=== PATIENT | male | born 1980 | race Hispanic/Latino ===

== ENCOUNTER 2017-12-19 02:59 | Emergency (ER) | payer SELFPAY ==
[2017-12-19] MEDS ORDERED: MEPERIDINE HCL 50 MG/ML AMP ONE (03:14)
[2017-12-19] MEDS ORDERED: DEXAMETHASONE 10 MG/ML VIAL ONE (03:14)
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
--- NOTE | 2017-12-19 04:03 | ER ---
Nurse's Notes [facility] Name: Mario Alberto Spear Age: 37 yrs Sex: Male : 1980 Arrival Date: 12/19/2017 Time: 03:04 Bed 8 Private MD: Diagnosis: Low back pain;Radiculopathy, lumbosacral region;Muscle spasm of back Presentation: 12/19 03:06 Presenting complaint: Patient states: he sustained a back injury 3 years ago to L5 \T\ S1 aa1 and has been having low back pain for the past week. States over the past 3 days the pain has started radiating down his R leg. CMS intact. Transition of care: patient was not received from another setting of care. Onset of symptoms was December 12, 2017. Risk Assessment: Do you want to hurt yourself or someone else? Patient reports no desire to harm self or others. Initial Sepsis Screen: Does the patient meet any 2 criteria? No. Patient's initial sepsis screen is negative. Does the patient have a suspected source of infection? No. Patient's initial sepsis screen is negative. Care prior to arrival: None. 03:06 Method Of Arrival: EMS: [facility] aa1 03:06 Acuity: FAISAL 4 aa1 Triage Assessment: 03:06 General: Appears in no apparent distress. uncomfortable, Behavior is calm, cooperative, aa1 appropriate for age. Historical: - Allergies: 03:14 No Known Allergies; aa1 - Home Meds: 03:14 None [Active]; aa1 - PMHx: 03:14 back injury to L5 \T\ S1; aa1 - PSHx: 03:14 None; aa1 - Immunization history:: Flu vaccine is not up to date. - Social history:: Smoking status: Patient uses tobacco products, smokes one-half pack cigarettes per day. - Family history:: not pertinent. - Ebola Screening: : No symptoms or risks identified at this time. - Hospitalizations: : No recent hospitalization is reported. Screenin:40 Abuse screen: Denies threats or abuse. Nutritional screening: No deficits noted. ea Tuberculosis screening: No symptoms or risk factors identified. Fall Risk None identified. Assessment: 03:10 General: Appears uncomfortable, Behavior is restless. Pain: Complains of pain in low ea back area and right leg Pain currently is 10 out of 10 on a pain scale. Quality of pain is described as aching. Neuro: Level of Consciousness is awake, alert, obeys commands, Oriented to person, place, time. Cardiovascular: Patient's skin is warm and dry. Respiratory: Airway is patent Respiratory effort is even, unlabored, Respiratory pattern is regular, symmetrical. Derm: Skin is pink, warm \T\ dry. Musculoskeletal: Circulation, motion, and sensation intact. Vital Signs: 03:06 BP 176 / 113; Pulse 80; Resp 18; Temp 97.9; Pulse Ox 97% on R/A; Weight 72.57 kg; aa1 Height 5 ft. 3 in. (160.02 cm); Pain 10/10; 03:36 BP 109 / 88; Pulse 70; Resp 18; Pulse Ox 97% ; ea 03:06 Body Mass Index 28.34 (72.57 kg, 160.02 cm) aa1 ED Course: 03:04 Patient arrived in ED. aa1 03:04 Navjot Batista MD is Attending Physician. rn 03:05 Jenny Mercado RN is Primary Nurse. ea 03:06 Arm band placed on right wrist. aa1 03:10 Patient has correct armband on for positive identification. Bed in low position. Call ea light in reach. Side rails up X2. 03:11 Triage completed. aa1 03:41 No provider procedures requiring assistance completed. ea 04:14 Patient did not have IV access during this emergency room visit. ea Administered Medications: 03:13 Drug: Decadron 10 mg Route: IM; Site: right deltoid; ea 03:43 Follow up: Response: No adverse reaction; Pain is decreased ea 03:14 Drug: Demerol 50 mg Route: IM; Site: left deltoid; ea 03:43 Follow up: Response: No adverse reaction; Pain is decreased ea Outcome: 04:02 Discharge ordered by . rn 04:10 Condition: improved ea 04:10 Discharge instructions given to patient, Instructed on discharge instructions, follow up and referral plans. medication usage, Demonstrated understanding of instructions, follow-up care, medications, Prescriptions given X 3. 04:14 Discharged to [facility], awaiting on transport home ea 04:22 Patient left the ED. ea Signatures: Gayle Acosta RN RN aa1 Batista, Navjot, MD MD rn Mercado, Jenny, RN RN ea
== END 2017-12-19 04:22 | disposition home or self-care (01) ==
LOC: ER 02:59
DX: M54.17 Radiculopathy, lumbosacral region (principal); M62.830 Muscle spasm of back; F17.210 Nicotine dependence, cigarettes, uncomplicated
CPT/HCPCS: 96372; 99283; J1100; J2175

== ENCOUNTER 2019-02-27 14:07 | Emergency (ER) | payer SELFPAY ==
[2019-02-27] MEDS ORDERED: CEFTRIAXONE 1000 MG/VIAL ONE (14:56)
[2019-02-27] MEDS ORDERED: LIDOCAINE 1% MPF 2 ML AMPULE ONE (14:56)
[2019-02-27] MEDS ORDERED: TETRACAINE HCL 0.5% 4ML OPTH ONE (14:56)
--- NOTE | 2019-02-27 15:18 | EDPHYS ---
Physician Documentation [facility] Name: Mario Alberto Spear Age: 38 yrs Sex: Male : 1980 Arrival Date: 02/27/2019 Time: 14:07 Bed 4 Private MD: ED Physician Navjot Batista HPI: 02/27 14:47 This 38 yrs old Male presents to ER via Ambulatory with complaints of Ear Pain.jmm 14:47 The patient presents with pain. Onset: The symptoms/episode began/occurred gradually, jmm today. Modifying factors: The symptoms are alleviated by nothing, the symptoms are aggravated by nothing. Associated signs and symptoms: Pertinent positives: Pertinent negatives: fever. This is a 38 year old male with a history of chronic back pain that presents to the ED with complaints of right ear pain beginning today. Patient admits to cough and congestion over the past week. Denies fever. Patient states pain radiates down his right jaw. . Historical: - Allergies: 14:13 No Known Allergies; ss - PMHx: 14:13 back injury to L5 \T\ S1; ss - PSHx: 14:13 None; ss - Immunization history:: Adult Immunizations up to date. - Social history:: Smoking status: Patient uses tobacco products, smokes one-half pack cigarettes per day. - Ebola Screening: : Patient denies exposure to infectious person Patient denies travel to an Ebola-affected area in the 21 days before illness onset. ROS: 14:47 Constitutional: Negative for fever, chills, and weight loss. jmm 14:47 Cardiovascular: Negative for chest pain, palpitations, and edema. 14:47 ENT: Positive for ear pain. 14:47 Respiratory: Positive for cough. 14:47 All other systems are negative. Exam: 14:47 Constitutional: This is a well developed, well nourished patient who is awake, alert, jmm and in no acute distress. Head/Face: atraumatic. Eyes: EOMI, no conjunctival erythema appreciated 14:47 Neck: Trachea midline, Supple Chest/axilla: Normal chest wall appearance and motion. Cardiovascular: Regular rate and rhythm. No edema appreciated Respiratory: Normal respirations, no respiratory distress appreciated Abdomen/GI: Non distended, soft Back: Normal ROM Skin: General appearance color normal MS/ Extremity: Moves all extremities, no obvious deformities appreciated, no edema noted to the lower extremities Neuro: Awake and alert, normal gait Psych: Behavior is normal, Mood is normal, Patient is cooperative and pleasant 14:47 ENT: TM's: bulging, on the right, erythema, that is marked, on the right. Vital Signs: 14:10 BP 172 / 95; Pulse 69; Resp 16; Temp 98.0; Pulse Ox 100% on R/A; Weight 70.76 kg; ss Height 5 ft. 3 in. (160.02 cm); Pain 9/10; 14:10 Body Mass Index 27.63 (70.76 kg, 160.02 cm) ss MDM: 14:47 Patient medically screened. [facility] 15:16 Data reviewed: vital signs, nurses notes. Counseling: I had a detailed discussion with horace the patient and/or guardian regarding: the historical points, exam findings, and any diagnostic results supporting the discharge/admit diagnosis, the need for outpatient follow up, to return to the emergency department if symptoms worsen or persist or if there are any questions or concerns that arise at home. ED course: Patient is alert and non toxic in appearance in the ED. Patient advised to follow up with pcp and otherwise given strict return precautions. Patient understood and agrees with the plan of care. . Administered Medications: 15:00 Drug: Rocephin (cefTRIAXone) 1 grams Route: IM; Site: right ventrogluteal; sg 15:00 Drug: Tetracaine Solution (0.5 %) 2 drops Route: Topical; Site: affected area; sg Disposition: 16:26 Co-signature as Attending Physician, Navjot Batista MD. rn Disposition: 02/27/19 15:17 Discharged to Home. Impression: Acute serous otitis media. - Condition is Stable. - Discharge Instructions: Otitis Media, Adult. - Prescriptions for Amoxicillin 875 mg Oral Tablet - take 1 tablet by ORAL route every 12 hours for 10 days; 20 tablet. - Work release form, Family Work Release, Medication Reconciliation Form, Thank You Letter, Antibiotic Education, Prescription Opioid Use form. - Follow up: Private Physician; When: 2 - 3 days; Reason: Recheck today's complaints, Continuance of care, Re-evaluation by your physician. Signatures: Abram Bass RN RN sg Mickail, Camilo, PA PA jmm Batista, Navjot, MD MD rn Smirch, Eli, RN RN ss Corrections: (The following items were deleted from the chart) 15:25 15:17 02/27/2019 15:17 Discharged to Home. Impression: Acute serous otitis media. sg Condition is Stable. Forms are Medication Reconciliation Form, Thank You Letter, Antibiotic Education, Prescription Opioid Use. Follow up: Private Physician; When: 2 - 3 days; Reason: Recheck today's complaints, Continuance of care, Re-evaluation by your physician. jonatan
--- NOTE | 2019-02-27 15:18 | ER ---
Nurse's Notes [facility] Name: Mario Alberto Spear Age: 38 yrs Sex: Male : 1980 Arrival Date: 02/27/2019 Time: 14:07 Bed 4 Private MD: Diagnosis: Acute serous otitis media Presentation: 02/27 14:11 Presenting complaint: Patient states: R ear pain that began suddenly today. Transition ss of care: patient was not received from another setting of care. Onset of symptoms was February 27, 2019. Risk Assessment: Do you want to hurt yourself or someone else? Patient reports no desire to harm self or others. Initial Sepsis Screen: Does the patient meet any 2 criteria? No. Patient's initial sepsis screen is negative. Does the patient have a suspected source of infection? No. Patient's initial sepsis screen is negative. Care prior to arrival: None. 14:11 Method Of Arrival: Ambulatory ss 14:11 Acuity: FAISAL 4 ss Historical: - Allergies: 14:13 No Known Allergies; ss - PMHx: 14:13 back injury to L5 \T\ S1; ss - PSHx: 14:13 None; ss - Immunization history:: Adult Immunizations up to date. - Social history:: Smoking status: Patient uses tobacco products, smokes one-half pack cigarettes per day. - Ebola Screening: : Patient denies exposure to infectious person Patient denies travel to an Ebola-affected area in the 21 days before illness onset. Assessment: 14:20 General: Appears in no apparent distress. well groomed, well developed, well nourished, sg Behavior is calm, cooperative, appropriate for age. Pain: Complains of pain in right ear Quality of pain is described as aching, sharp, stabbing. Neuro: Level of Consciousness is awake, alert, obeys commands, Oriented to person, place, time, Speech is normal, Facial symmetry appears normal. Cardiovascular: Capillary refill is brisk in bilateral fingers Patient's skin is warm and dry. Chest pain is denied. Respiratory: Airway is patent Respiratory effort is even, unlabored, Respiratory pattern is regular, symmetrical. GI: Abdomen is round non-distended. : No signs and/or symptoms were reported regarding the genitourinary system. EENT: Reports pain in right ear. Derm: No signs and/or symptoms reported regarding the dermatologic system. Musculoskeletal: Circulation, motion, and sensation intact. Range of motion: intact in all extremities. Vital Signs: 14:10 BP 172 / 95; Pulse 69; Resp 16; Temp 98.0; Pulse Ox 100% on R/A; Weight 70.76 kg; ss Height 5 ft. 3 in. (160.02 cm); Pain 9/10; 14:10 Body Mass Index 27.63 (70.76 kg, 160.02 cm) ED Course: 14:07 Patient arrived in ED. as 14:10 Arm band placed on right wrist. 14:13 Triage completed. 14:20 Patient has correct armband on for positive identification. Bed in low position. Call sg light in reach. Side rails up X2. Pulse ox on. NIBP on. 14:29 Camilo Hills PA is PHCP. [facility] 14:29 Navjot Batista MD is Attending Physician. [facility] 15:04 Abram Bass, RN is Primary Nurse. sg 15:25 No provider procedures requiring assistance completed. Patient did not have IV access sg during this emergency room visit. Administered Medications: 15:00 Drug: Rocephin (cefTRIAXone) 1 grams Route: IM; Site: right ventrogluteal; sg 15:00 Drug: Tetracaine Solution (0.5 %) 2 drops Route: Topical; Site: affected area; sg Outcome: 15:17 Discharge ordered by MD. [facility] 15:20 Discharged to home ambulatory, with family. sg 15:20 Condition: good 15:20 Discharge instructions given to patient, Instructed on discharge instructions, follow up and referral plans. no drinking with medication, medication usage, safety practices, Demonstrated understanding of instructions, follow-up care, medications, Prescriptions given X 1. 15:25 Patient left the ED. sg Signatures: Abram Bass, RN RN Camilo Hills PA PA jmm Martinez, Amelia as Smirch, Shelby, RN RN
[2019-02-27 16:43] VITALS: BP 172/95; TEMP 98; O2SAT 100
== END 2019-02-27 15:25 | disposition home or self-care (01) ==
LOC: ER 14:07
DX: H65.01 Acute serous otitis media, right ear (principal); F17.210 Nicotine dependence, cigarettes, uncomplicated
CPT/HCPCS: 96372; 99283; J2001

== ENCOUNTER 2019-12-25 16:05 | Emergency (ER) | payer SELFPAY ==
[2019-12-25] MEDS ORDERED: ONDANSETRON 4 MG/2 ML VIAL ONE (16:26)
[2019-12-25] MEDS ORDERED: MORPHINE 4 MG/ML SYR ONE (16:26)
[2019-12-25] MEDS ORDERED: NA CHLORIDE 0.9% 1,000 ML ONE (16:26)
[2019-12-25] MEDS ORDERED: TETANUS & DIPHTHERIA TOX,ADULT 0.5 ML VIAL ONE (16:26)
[2019-12-25] MEDS ORDERED: LIDOCAINE VISCOUS 2% SOLN 15 ML UDC ONE (16:28)
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
[2019-12-25] MEDS ORDERED: HYDROMORPHONE HCL 0.5 MG/0.5 ML INJ ONE ×2 (16:54→18:24)
[2019-12-25] MEDS ORDERED: CEFAZOLIN/SWI 1gm 1 GM/10 ML SYR ONE (16:54)
[2019-12-25 18:44] VITALS: TEMP 98.6
[2019-12-25 18:54] VITALS: BP 151/72; O2SAT 98
== END 2019-12-25 18:18 | disposition short-term general hospital (02) ==
LOC: ER 16:05
DX: T22.211A Burn of second degree of right forearm, initial encounter (principal); T23.201A Burn of second degree of right hand, unspecified site, initial encounter; T23.271A Burn of second degree of right wrist, initial encounter; T31.0 Burns involving less than 10% of body surface; X03.0XXA Exposure to flames in controlled fire, not in building or structure, initial encounter; Y93.89 Activity, other specified; Y92.9 Unspecified place or not applicable; Z23 Encounter for immunization; F17.210 Nicotine dependence, cigarettes, uncomplicated
CPT/HCPCS: 90471; 90714; 96365; 96375; 99285; J0690; J1170; J2405; J7030

== ENCOUNTER 2020-07-25 21:51 | Emergency (ER) | payer SELFPAY ==
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
[2020-07-26] MEDS ORDERED: dexAMETHasone 10 MG/ML VIAL ONE (02:07)
[2020-07-26 02:18] VITALS: BP 164/87; TEMP 97.5; O2SAT 99
== END 2020-07-26 02:07 | disposition home or self-care (01) ==
LOC: ER 21:51
DX: L23.7 Allergic contact dermatitis due to plants, except food (principal); F17.210 Nicotine dependence, cigarettes, uncomplicated
CPT/HCPCS: 99281; J1100

== ENCOUNTER 2021-02-19 15:38 | Emergency (ER) | payer SELFPAY ==
--- OUTSIDE RECORDS SUMMARY | 2021-02-19 15:40 | XMS REPORT | Continuity of Care Document ---
:1980 Author Organization [facility] t Address [facility] [place] [address] Care Team Providers Name Role Phone CARA STEPHENS Attending Clinician Unavailable Letitia BLANCO Attending Clinician Unavailable CORI LITTLE Attending Clinician Unavailable Cecilia LOGAN Admitting Clinician Unavailable Problems This patient has no known problems. Allergies, Adverse Reactions, Alerts Allergy Allergy Status Severity Reaction(s) Onset Inactive Treating Comm ents Source Name Type Date Date Clinician NO KNOWN Drug Active [facility] Medications This patient has no known medications. Procedures This patient has no known procedures. Encounters Start End Encounter Admission Attending Care Care Encounter Source Date/Time Date/Time Type Type Clinicians Facility Department ID 2020-01-06 2020-01-06 Outpatient O CARA STEPHENS [facility] [id number] [facility]:30[facility] 2020-01-06 Outpatient R [facility] [id number] [facility] 12:30:00 12:30:00 [id number] [facility] 2020-01-05 2020-01-05 Outpatient R [facility] [id number] [facility] 12:30:00 12:30:00 [id number] [facility] 2020-01-05 2020-01-05 Outpatient R CARA STEPHENS [facility] [id number] [facility] 12:30[facility]00 [facility]-12-29 2019-12-29 Outpatient R [facility] [id number] Univers 15:00:00 15:00:00 [id number] [facility] 2019-12-29 2019-12-29 Outpatient R BELLA [facility] [id number] [facility] 15:00:00 15:00:00 [facility] 2019-12-29 2019-12-29 Outpatient Dania LITTLE [facility] [id number] [facility] 12:30:00 12:30:[address] [facility] 2019-12-25 2019-12-25 [facility] [id number] [facility] 00:00:00 23:59:[address] [facility] Results This patient has no known results.
[2021-02-19 16:26] LABS: Arterial Blood Carboxyhemoglob 3.5 % (0-1.5); Blood Gas Oxyhemoglobin 92.2 % (94-97); Blood O2 Saturation 96.6 % (92-98.5)
[2021-02-19] MEDS ORDERED: TETRACAINE HCL 0.5% 4ML OPTH ONE (16:35)
[2021-02-19] MEDS ORDERED: FLUORESCEIN SODIUM 1 MG/WRAP ONE (16:35)
[2021-02-19] MEDS ORDERED: ALBUTEROL 2.5 MG/3 ML NEB SOL ONE (16:40)
[2021-02-19 16:50] LABS: Absolute Lymphocytes (CBC) 3.3 K/uL (0.7-4.9); Basophils % 0.8 % (0-1.3); Hematocrit 38.9 % (39.6-49.0); Lymphocytes % 36.5 % (15.3-44.8); MPV 7.3 fL (7.6-11.3); RBC Red Blood Cell Count 4.18 M/uL (4.33-5.43)
[2021-02-19 16:51] LABS: Protime INR 1.12
[2021-02-19 17:09] LABS: ALT/SGPT 79 U/L (12-78); AST/SGOT 31 U/L (15-37); Albumin 4.3 g/dL (3.4-5.0); Alkaline Phosphatase 98 U/L (45-117); BUN Blood Urea Nitrogen 8 mg/dL (7-18); Bicarbonate 25 mmol/L (21-32); Bilirubin Direct 0.1 mg/dL (0-0.2); Bilirubin Total 0.5 mg/dL (0.2-1.0); Glucose Level 107 mg/dL (74-106); Magnesium 2.2 mg/dL (1.8-2.4); NT PRO-BNP 16 pg/mL (<125); Potassium 3.4 mmol/L (3.5-5.1); Protein, Total 8.1 g/dL (6.4-8.2); Sodium Level 139 mmol/L (136-145); Troponin (Emerg Dept Use Only) < 0.02 ng/mL (0.0-0.045)
[2021-02-19] MEDS ORDERED: NA CHLORIDE 0.9% 1,000 ML ONE (17:40)
[2021-02-19] MEDS ORDERED: POTASSIUM 25 MEQ EFFERV TAB ONE (18:15)
--- NOTE | 2021-02-19 18:20 | ER ---
Nurse's Notes [facility] Name: Mario Alberto Spear Age: 40 yrs Sex: Male : 1980 Arrival Date: 02/19/2021 Time: 15:39 Bed 8 Private MD: Diagnosis: Toxic effect of carbon monoxide from other source, accidental (unintentional), initial encounter;Visual discomfort, bilateral Presentation: 02/19 15:47 Chief complaint: Patient states: has been BBQ since 0130 and around 0900 states vision vg1 became blurred and is have difficulty breathing. States used a different wood this time. Denies chest pain or headache. States light sensitivity. Coronavirus screen: Vaccine status: Patient reports being unvaccinated. Client denies travel out of the [place] in the last 14 days. Ebola Screen: Patient negative for fever greater than or equal to 101.5 degrees Fahrenheit, and additional compatible Ebola Virus Disease symptoms. Initial Sepsis Screen: Does the patient meet any 2 criteria? No. Patient's initial sepsis screen is negative. Does the patient have a suspected source of infection? No. Patient's initial sepsis screen is negative. Risk Assessment: Do you want to hurt yourself or someone else? Patient reports no desire to harm self or others. Onset of symptoms was February 19, 2021. 15:47 Method Of Arrival: Ambulatory [facility] 15:47 Acuity: FAISAL 3 vg1 Triage Assessment: 15:49 General: Appears in no apparent distress. uncomfortable, Behavior is cooperative, vg1 anxious. Pain: Complains of pain in right eye and left eye Pain currently is 8 out of 10 on a pain scale. Respiratory: Reports difficulty breathing Onset: The symptoms/episode began/occurred today, the patient has mild shortness of breath. Historical: - Allergies: 15:49 No Known Allergies; vg1 - Home Meds: 15:49 None [Active]; vg1 - PMHx: 15:49 back injury to L5 \T\ S1; vg1 - PSHx: 15:49 None; vg1 - Immunization history:: Client reports having NOT received the Covid vaccine. - Social history:: Smoking status: Patient reports the use of cigarette tobacco products, smokes one-half pack cigarettes per day. Screenin:01 Abuse screen: Denies threats or abuse. Nutritional screening: No deficits noted. al4 Tuberculosis screening: No symptoms or risk factors identified. Fall Risk No fall in past 12 months (0 pts). IV access (20 points). Ambulatory Aid- None/Bed Rest/Nurse Assist (0 pts). Gait- Normal/Bed Rest/Wheelchair (0 pts) Mental Status- Oriented to own ability (0 pts). Total Luciano Fall Scale indicates No Risk (0-24 pts). Assessment: 15:49 General: Appears in no apparent distress. uncomfortable, Behavior is calm, cooperative, al4 appropriate for age. Neuro: Level of Consciousness is awake, alert, obeys commands, Oriented to person, place, time, situation. Cardiovascular: Heart tones S1 S2 present Capillary refill < 3 seconds Patient's skin is warm and dry. Respiratory: Airway is patent Respiratory effort is even, unlabored, Respiratory pattern is regular, symmetrical, Breath sounds are clear bilaterally. GI: No signs and/or symptoms were reported involving the gastrointestinal system. : No signs and/or symptoms were reported regarding the genitourinary system. EENT: Eyes are swollen. Reports blurred vision in left eye and right eye. Derm: Skin is intact, Skin is dry, Skin is normal. Musculoskeletal: No signs and/or symptoms reported regarding the musculoskeletal system. 16:45 Reassessment: No changes from previously documented assessment. Patient and/or family al4 updated on plan of care and expected duration. Pain level reassessed. Patient is alert, oriented x 3, equal unlabored respirations, skin warm/dry/pink. 17:36 Reassessment: No changes from previously documented assessment. Patient and/or family al4 updated on plan of care and expected duration. Pain level reassessed. Patient is alert, oriented x 3, equal unlabored respirations, skin warm/dry/pink. 18:30 Reassessment: waiting for NS bolus completion before discharge. al4 18:30 Reassessment: No changes from previously documented assessment. Patient and/or family al4 updated on plan of care and expected duration. Pain level reassessed. Patient is alert, oriented x 3, equal unlabored respirations, skin warm/dry/pink. Vital Signs: 15:45 BP 142 / 88; Pulse 70; Resp 18; Pulse Ox 100% ; al4 15:47 BP 144 / 87; Pulse 67; Resp 18; Temp 98.4; Pulse Ox 100% ; Weight 72.57 kg; Height 5 vg1 ft. 3 in. (160.02 cm); Pain 8/10; 16:55 BP 150 / 77; Pulse 61; Resp 18; Pulse Ox 100% ; al4 17:30 BP 155 / 89; Pulse 69; Resp 18; Pulse Ox 99% ; al4 18:48 BP 137 / 99; Pulse 63; Resp 18 S; Pulse Ox 99% on R/A; al4 15:47 Body Mass Index 28.34 (72.57 kg, 160.02 cm) vg1 Visual Acuity: 17:34 Left Eye Visual acuity 20/20, Pupil size 3 mm, Normal, React To Light, Reactive To al4 Accomodation; Right Eye Visual acuity 20/20, Pupil size 3 mm, Normal, React To Light, Reactive To Accomodation; Both Eyes Visual acuity 20/20; Without Lenses; ED Course: 15:39 Patient arrived in ED. am2 15:42 Williams Agosto is Primary Nurse. al4 15:46 Bryn Steinberg PA is PHCP. cp 15:46 Franco Yepez MD is Attending Physician. cp 15:49 Triage completed. vg1 15:49 Arm band placed on. vg1 17:02 Patient has correct armband on for positive identification. Bed in low position. Call al4 light in reach. Side rails up X 1. Pulse ox on. NIBP on. Door closed. Noise minimized. Lights dimmed. 17:07 Initial lab(s) drawn, by dc, sent to lab. Inserted saline lock: 20 gauge in left kv1 antecubital area, using aseptic technique. Blood collected. 18:45 XRAY Chest (1 view) In Process Unspecified. EDMS 19:09 Assist provider with eye exam of both eyes. using fluorescein stain, Performed by Bryn al4 Maryan HAZEL Patient tolerated well. intact, bleeding controlled, No redness/swelling at site. Pressure dressing applied. Administered Medications: 16:49 Drug: Tetracaine Drops 0.5 % 1 drops Route: Ophthalmic; Site: both eyes; al4 17:46 Follow up: Response: No adverse reaction al4 16:49 Drug: Albuterol 2.5 mg Route: Inhalation; al4 17:45 Follow up: Response: No adverse reaction al4 17:44 Drug: NS 0.9% 1000 ml Route: IV; Rate: 1 bolus; Site: left antecubital; al4 19:11 Follow up: Response: No adverse reaction; IV Status: Completed infusion al4 18:19 Drug: Potassium Effervescent Tablet 50 mEq Route: PO; al4 19:11 Follow up: Response: No adverse reaction al4 Outcome: 18:20 Discharge ordered by . chester 19:09 Discharged to home ambulatory. al4 19:09 Condition: stable 19:09 Discharge instructions given to patient, family, Instructed on discharge instructions, follow up and referral plans. Demonstrated understanding of instructions, follow-up care. 19:12 Patient left the ED. al4 Signatures: Dispatcher [employer] EDMS Bryn Steinberg PA PA cp Moreno, Amanda am2 Garcia, Victoria, RN RN vg1 Williams Agosto al4 Octavio Kelley
--- NOTE | 2021-02-19 18:21 | EDPHYS ---
Physician Documentation [facility] Name: Mario Alberto Spear Age: 40 yrs Sex: Male : 1980 Arrival Date: 02/19/2021 Time: 15:39 Bed 8 Private MD: ED Physician Franco Yepez HPI: 02/19 16:45 This 40 yrs old Male presents to ER via Ambulatory with complaints of cp Breathing Difficulty, Blurred Vision. 16:45 The patient has shortness of breath at rest. cp Historical: - Allergies: 15:49 No Known Allergies; vg1 - Home Meds: 15:49 None [Active]; vg1 - PMHx: 15:49 back injury to L5 \T\ S1; vg1 - PSHx: 15:49 None; vg1 - Immunization history:: Client reports having NOT received the Covid vaccine. - Social history:: Smoking status: Patient reports the use of cigarette tobacco products, smokes one-half pack cigarettes per day. ROS: 16:50 Constitutional: Negative for body aches, chills, fever, poor PO intake. cp 16:50 Eyes: Positive for blurry vision, Negative for pain, redness, vision loss. cp 16:50 ENT: Negative for drainage from ear(s), ear pain, sore throat, difficulty swallowing, difficulty handling secretions. 16:50 Cardiovascular: Negative for chest pain, edema, palpitations. 16:50 Respiratory: Positive for shortness of breath. 16:50 Abdomen/GI: Negative for abdominal pain, nausea, vomiting, and diarrhea. 16:50 : Negative for urinary symptoms. 16:50 Skin: Negative for rash. 16:50 Neuro: Positive for dizziness, Negative for altered mental status, headache, syncope, weakness. 16:50 All other systems are negative. Exam: 16:45 ECG was reviewed by the Attending Physician. cp 16:53 Constitutional: The patient appears in no acute distress, alert, awake, cp non-diaphoretic, non-toxic, well developed, well nourished, uncomfortable. 16:53 Head/Face: Normocephalic, atraumatic. cp 16:53 Eyes: Periorbital structures: appear normal, Pupils: equal, round, and reactive to light and accomodation, Extraocular movements: intact throughout, Conjunctiva: normal, no exudate, no injection, Corneas: abrasion, is not appreciated, foreign body, is not appreciated, a fluorescein strip employed to appreciate the findings, Sclera: no appreciated abnormality, Lids and lashes: appear normal, bilaterally, Visual call: are intact. 16:53 ENT: External ear(s): are unremarkable, Ear canal(s): are normal, clear, TM's: dullness, bilaterally, Nose: is normal, Mouth: Lips: moist, Oral mucosa: pink and intact, moist, Posterior pharynx: Airway: no evidence of obstruction, patent. 16:53 Neck: ROM/movement: is normal, is supple, without pain, no range of motions limitations. 16:53 Chest/axilla: Inspection: normal, Palpation: is normal, no crepitus, no tenderness. 16:53 Cardiovascular: Rate: normal, Rhythm: regular, Edema: is not appreciated, JVD: is not appreciated. 16:53 Respiratory: the patient does not display signs of respiratory distress, Respirations: normal, no use of accessory muscles, no retractions, labored breathing, is not present, Breath sounds: are clear throughout, no decreased breath sounds, no stridor, no wheezing. 16:53 Abdomen/GI: Inspection: abdomen appears normal, Palpation: abdomen is soft and non-tender, in all quadrants. 16:53 Skin: cellulitis, is not appreciated, no rash present. 16:53 Neuro: Orientation: to person, place \T\ time. Mentation: is normal, Motor: moves all fours, strength is normal. Vital Signs: 15:45 BP 142 / 88; Pulse 70; Resp 18; Pulse Ox 100% ; al4 15:47 BP 144 / 87; Pulse 67; Resp 18; Temp 98.4; Pulse Ox 100% ; Weight 72.57 kg; Height 5 vg1 ft. 3 in. (160.02 cm); Pain 8/10; 16:55 BP 150 / 77; Pulse 61; Resp 18; Pulse Ox 100% ; al4 17:30 BP 155 / 89; Pulse 69; Resp 18; Pulse Ox 99% ; al4 18:48 BP 137 / 99; Pulse 63; Resp 18 S; Pulse Ox 99% on R/A; al4 15:47 Body Mass Index 28.34 (72.57 kg, 160.02 cm) vg1 Visual Acuity: 17:34 Left Eye Visual acuity 20/20, Pupil size 3 mm, Normal, React To Light, Reactive To al4 Accomodation; Right Eye Visual acuity 20/20, Pupil size 3 mm, Normal, React To Light, Reactive To Accomodation; Both Eyes Visual acuity 20/20; Without Lenses; MDM: 15:55 Patient medically screened. 18:20 Data reviewed: vital signs, nurses notes, lab test result(s), EKG, radiologic studies, cp plain films. 18:20 Test interpretation: by ED physician or midlevel provider: ECG, plain radiologic cp studies. Counseling: I had a detailed discussion with the patient and/or guardian regarding: the historical points, exam findings, and any diagnostic results supporting the discharge/admit diagnosis, lab results, radiology results, to return to the emergency department if symptoms worsen or persist or if there are any questions or concerns that arise at home. Response to treatment: the patient's symptoms have markedly improved after treatment, VSS. Patient reports symptoms improved. Will discharge to home for continued monitoring. 02/19 15:54 Order name: Basic Metabolic Panel 02/19 15:54 Order name: CBC with Diff; Complete Time: 17:16 02/19 17:17 Interpretation: Normal except: RBC 4.18; HGB 13.2; HCT 38.9; MPV 7.3. 02/19 15:54 Order name: LFT's; Complete Time: 17:16 02/19 18:11 Interpretation: Normal except: ALT 79; GLOB 3.8. 02/19 15:54 Order name: Magnesium; Complete Time: 17:16 02/19 15:54 Order name: NT PRO-BNP; Complete Time: 17:16 02/19 15:54 Order name: PT-INR; Complete Time: 17:16 02/19 15:54 Order name: Troponin (emerg Dept Use Only); Complete Time: 17:16 02/19 15:54 Order name: XRAY Chest (1 view); Complete Time: 19:08 02/19 19:08 Interpretation: Report reviewed. 02/19 15:55 Order name: Basic Metabolic Panel; Complete Time: 17:16 EDIL 02/19 18:11 Interpretation: Normal except: K 3.4; CL 108; GLUC 107. 02/19 16:01 Order name: ABG 02/19 16:02 Order name: ABG Arterial Blood Gas; Complete Time: 17:16 EDMS 02/19 18:12 Interpretation: Normal except: WGLR6FS 92.2; ABGCOHB 3.5. cp 02/19 15:54 Order name: EKG; Complete Time: 15:55 02/19 15:54 Order name: Cardiac monitoring; Complete Time: 16:38 02/19 15:54 Order name: EKG - Nurse/Tech; Complete Time: 16:38 02/19 15:54 Order name: IV Saline Lock; Complete Time: 16:38 02/19 15:54 Order name: Labs collected and sent; Complete Time: 16:38 02/19 15:54 Order name: O2 Per Protocol; Complete Time: 16:28 02/19 15:54 Order name: O2 Sat Monitoring; Complete Time: 16:28 02/19 16:01 Order name: Eye Tray; Complete Time: 16:28 02/19 16:01 Order name: Fluoresene Opth strip; Complete Time: 16:28 02/19 16:01 Order name: Visual Acuity; Complete Time: 17:34 cp EC:45 Rate is 58 beats/min. Rhythm is regular. HI interval is normal. QRS interval is normal. cp QT interval is normal. T waves are Inverted in leads III, aVR. Interpreted by me. Reviewed by me. Administered Medications: 16:49 Drug: Tetracaine Drops 0.5 % 1 drops Route: Ophthalmic; Site: both eyes; al4 17:46 Follow up: Response: No adverse reaction al4 16:49 Drug: Albuterol 2.5 mg Route: Inhalation; al4 17:45 Follow up: Response: No adverse reaction al4 17:44 Drug: NS 0.9% 1000 ml Route: IV; Rate: 1 bolus; Site: left antecubital; al4 19:11 Follow up: Response: No adverse reaction; IV Status: Completed infusion al4 18:19 Drug: Potassium Effervescent Tablet 50 mEq Route: PO; al4 19:11 Follow up: Response: No adverse reaction al4 Disposition: 02/20 07:07 Co-signature as Attending Physician, Franco Yepez MD PA/FLEX O WRITER OPERATOR's history reviewed, ma2 patient interviewed, and examined. I agree with assessment and care plan and confirm the diagnosis (es) above. Disposition Summary: 02/19/21 18:20 Discharge Ordered Location: Home cp Problem: new cp Symptoms: have improved cp Condition: Stable cp Diagnosis - Toxic effect of carbon monoxide from other source, accidental (unintentional), cp initial encounter - Visual discomfort, bilateral cp Followup: cp - With: Private Physician - When: 1 - 2 days - Reason: Recheck today's complaints Discharge Instructions: - Discharge Summary Sheet cp - Carbon Monoxide Poisoning cp - Visual Disturbances cp - Preventing Carbon Monoxide Poisoning cp Forms: - Medication Reconciliation Form cp - Thank You Letter cp - Antibiotic Education cp - Prescription Opioid Use cp Addendum: 02/19/2021 16:47 Addendum: HPI: 40-year-old male who presents to the emergency department with c p complaints of shortness of breath blurry vision. Patient reports he has been outside near the [facility] all morning and presents now with some shortness of breath, blurry vision. Patient denies cough fever, denies redness of eyes, denies injury to eyes.. Signatures: Dispatcher [employer] EDMS Bryn Steinberg PA PA cp Alzahri, Mohammad, MD MD ma2 Lisbeth Jain RN RN 1 Williams Agosto
--- NOTE | 2021-02-19 19:01 | RAD REPORT ---
EXAM DESCRIPTION: RAD - Chest Single View - 02/19/2021 6:45 pm CLINICAL HISTORY: SOB COMPARISON: CHEST PA AND LAT 2 VIEW dated 09/06/2012 FINDINGS: Lines: None. Lungs: No evidence of edema or pneumonia. Pleural: No significant pleural effusions or pneumothorax. Cardiac: The heart size is within normal limits. Bones: No acute fractures. Other: IMPRESSION: No acute cardiopulmonary disease.
[2021-02-19 19:39] VITALS: TEMP 98.4
[2021-02-19 19:42] VITALS: O2SAT 99
[2021-02-19 19:44] VITALS: BP 137/99
== END 2021-02-19 19:12 | disposition home or self-care (01) ==
LOC: ER 15:38
DX: T58.8X1A Toxic effect of carbon monoxide from other source, accidental (unintentional), initial encounter (principal); H53.143 Visual discomfort, bilateral; Y92.007 Garden or yard of unspecified non-institutional (private) residence as the place of occurrence of the external cause; F17.210 Nicotine dependence, cigarettes, uncomplicated
CPT/HCPCS: 36415; 71045; 80048; 80076; 82805; 83735; 83880; 84484; 85025; 85610; 93005; 96360; 99285; J7030

== ENCOUNTER 2021-10-08 00:12 | Emergency (ER) | payer SELFPAY ==
[2021-10-08] MEDS ORDERED: ACETAMINOPHEN 500 MG TAB ONE (02:09)
[2021-10-08] MEDS ORDERED: LIDOCAINE 4% PATCH ONE (02:09)
[2021-10-08] MEDS ORDERED: dexAMETHasone 10 MG/ML VIAL ONE (02:09)
[2021-10-08] MEDS ORDERED: CYCLOBENZAPRINE 10 MG TAB ONE (02:09)
[2021-10-08] MEDS ORDERED: KETOROLAC 30 MG/ML INJ ONE (04:43)
--- NOTE | 2021-10-08 05:02 | ER ---
Nurse's Notes [facility] Name: Mario Alberto Spear Age: 41 yrs Sex: Male : 1980 Arrival Date: 10/08/2021 Time: 00:17 Bed 12 Private MD: Diagnosis: Lumbago with sciatica, right side Presentation: 10/08 00:43 Chief complaint: Patient states: "I hurt my back four days ago. I was sitting to long tw5 on a chair with grooves on a hard chair.. Now I have pain that starts at the base of my spine and goes all the way down the back of my leg.". Chief complaint:. Coronavirus screen: Vaccine status: Patient reports being unvaccinated. Ebola Screen: Patient negative for fever greater than or equal to 101.5 degrees Fahrenheit, and additional compatible Ebola Virus Disease symptoms Patient denies exposure to infectious person. Patient denies travel to an Ebola-affected area in the 21 days before illness onset. Initial Sepsis Screen: Does the patient meet any 2 criteria? No. Patient's initial sepsis screen is negative. Does the patient have a suspected source of infection? No. Patient's initial sepsis screen is negative. Risk Assessment: Do you want to hurt yourself or someone else? Patient reports no desire to harm self or others. Onset of symptoms was October 04, 2021. 00:43 Method Of Arrival: Wheelchair tw5 00:43 Acuity: FAISAL 4 tw5 Triage Assessment: 00:47 General: Appears in no apparent distress. Behavior is calm, cooperative, appropriate tw5 for age. Pain: Complains of pain in right gluteal fold, right hamstring and posterior aspect of right knee Pain currently is 7 out of 10 on a pain scale. Musculoskeletal: Range of motion: intact in all extremities. Historical: - Allergies: 00:47 No Known Allergies; tw5 - Home Meds: 00:47 None [Active]; tw5 - PMHx: 00:47 back injury to L5 \\T\\ S1; tw5 - PSHx: 00:47 None; tw5 - Immunization history:: Flu vaccine is not up to date. - Social history:: Smoking status: Patient/guardian denies using tobacco, Stopped _ months ago 1. Screenin:36 Abuse screen: Denies threats or abuse. Denies injuries from another. Nutritional tw5 screening: No deficits noted. Tuberculosis screening: No symptoms or risk factors identified. Fall Risk None identified. Assessment: 02:08 Reassessment: Patient appears in no apparent distress at this time. No changes from tw5 previously documented assessment. Patient and/or family updated on plan of care and expected duration. Pain level reassessed. Patient is alert, oriented x 3, equal unlabored respirations, skin warm/dry/pink. Neuro: No deficits noted. 04:42 Reassessment: Patient states feeling better. Patient states symptoms have improved. tw5 General: Appears in no apparent distress. Behavior is calm, cooperative, appropriate for age, Reports. Neuro: Level of Consciousness is awake, alert, obeys commands. Respiratory: No deficits noted. GI: No deficits noted. Vital Signs: 00:43 BP 181 / 101; Pulse 83; Resp 18; Temp 98.6; Pulse Ox 100% ; Weight 68.04 kg; Height 5 tw5 ft. 3 in. (160.02 cm); Pain 7/10; 05:36 Pulse 64; Resp 18; Pulse Ox 100% ; Pain 5/10; tw5 00:43 Body Mass Index 26.57 (68.04 kg, 160.02 cm) tw5 ED Course: 00:17 Patient arrived in ED. ja2 00:47 Triage completed. tw5 00:47 Arm band placed on right wrist. tw5 01:05 Franc Brooks MD is Attending Physician. [email or web address] 01:59 Jennifer Li is Primary Nurse. tw5 05:36 Patient has correct armband on for positive identification. tw5 05:36 No provider procedures requiring assistance completed. Patient did not have IV access tw5 during this emergency room visit. Administered Medications: 02:08 Drug: Lidoderm Patch 5 % (700 mg/patch) 1 patches Route: Topical; Site: affected area; tw5 04:36 Follow up: Response: No adverse reaction tw 02:08 Drug: Tylenol 1000 mg Route: PO; tw5 04:36 Follow up: Response: No adverse reaction tw 02:08 Drug: Decadron (dexamethasone) 10 mg Route: IM; Site: right ventrogluteal; tw5 04:36 Follow up: Response: No adverse reaction tw5 02:08 Drug: Flexeril (cyclobenzaprine) 10 mg Route: PO; 04:36 Follow up: Response: No adverse reaction 04:42 Drug: Ketorolac 60 mg Route: IM; Site: right ventrogluteal; 05:32 Follow up: Response: No adverse reaction Medication: 05:37 VIS not applicable for this client. Outcome: 05:01 Discharge ordered by . gerardo 05:36 Discharged to home ambulatory. 05:36 Condition: good 05:36 Discharge instructions given to patient, Instructed on discharge instructions, follow up and referral plans. Demonstrated understanding of instructions, follow-up care, medications, Prescriptions given X 4. 05:37 Patient left the ED. Signatures: Franc Brooks MD MD 7 Wanda Martini Tiffany
--- NOTE | 2021-10-08 05:02 | EDPHYS ---
Physician Documentation [facility] Name: Mario Alberto Spear Age: 41 yrs Sex: Male : 1980 Arrival Date: 10/08/2021 Time: 00:17 Bed 12 Private MD: ED Physician Franc Brooks HPI: 10/08 01:40 This 41 yrs old Male presents to ER via Wheelchair with complaints of Back mh7 Pain. 01:40 The patient presents with pain that is acute, with no known mechanism of injury. The mh7 symptoms are located in the low back. 01:40 Onset: The symptoms/episode began/occurred 4 day(s) ago. mh7 01:40 The pain radiates to the right leg. Associated signs and symptoms: Pertinent negatives: mh7 abdominal pain, chest pain, constipation, dysuria, fever, headache, hematuria, incontinence, nausea, numbness, tingling, urinary retention, vomiting, weakness. The problem was sustained prolonged sitting in a wooden chair. Modifying factors: The patient symptoms are alleviated by nothing, the patient symptoms are aggravated by movement. Severity of symptoms: At their worst the symptoms were moderate, 2 day(s) ago, in the emergency department the symptoms have improved, moderately. The patient has experienced similar episodes in the past, several times. Historical: - Allergies: 00:47 No Known Allergies; tw5 - Home Meds: 00:47 None [Active]; tw5 - PMHx: 00:47 back injury to L5 \T\ S1; tw - PSHx: 00:47 None; tw - Immunization history:: Flu vaccine is not up to date. - Social history:: Smoking status: Patient/guardian denies using tobacco, Stopped _ months ago 1. ROS: 01:40 Constitutional: Negative for fever, chills, and weight loss, Eyes: Negative for injury, mh7 pain, redness, and discharge, ENT: Negative for injury, pain, and discharge, Neck: Negative for injury, pain, and swelling, Cardiovascular: Negative for chest pain, palpitations, and edema, Respiratory: Negative for shortness of breath, cough, wheezing, and pleuritic chest pain, Abdomen/GI: Negative for abdominal pain, nausea, vomiting, diarrhea, and constipation, : Negative for injury, bleeding, discharge, and swelling, MS/Extremity: Negative for injury and deformity, Skin: Negative for injury, rash, and discoloration, Neuro: Negative for headache, weakness, numbness, tingling, and seizure, Psych: Negative for depression, anxiety, suicide ideation, homicidal ideation, and hallucinations, Allergy/Immunology: Negative for hives, rash, and allergies, Endocrine: Negative for neck swelling, polydipsia, polyuria, polyphagia, and marked weight changes, Hematologic/Lymphatic: Negative for swollen nodes, abnormal bleeding, and unusual bruising. Exam: 01:40 Head/Face: Normocephalic, atraumatic. Eyes: Pupils equal round and reactive to light, mh7 extra-ocular motions intact. Lids and lashes normal. Conjunctiva and sclera are non-icteric and not injected. Cornea within normal limits. Periorbital areas with no swelling, redness, or edema. ENT: Nares patent. No nasal discharge, no septal abnormalities noted. Tympanic membranes are normal and external auditory canals are clear. Oropharynx with no redness, swelling, or masses, exudates, or evidence of obstruction, uvula midline. Mucous membranes moist. Neck: Trachea midline, no thyromegaly or masses palpated, and no cervical lymphadenopathy. Supple, full range of motion without nuchal rigidity, or vertebral point tenderness. No Meningismus. Chest/axilla: Normal chest wall appearance and motion. Nontender with no deformity. No lesions are appreciated. Cardiovascular: Regular rate and rhythm with a normal S1 and S2. No gallops, murmurs, or rubs. Normal PMI, no JVD. No pulse deficits. Respiratory: Lungs have equal breath sounds bilaterally, clear to auscultation and percussion. No rales, rhonchi or wheezes noted. No increased work of breathing, no retractions or nasal flaring. Abdomen/GI: Soft, non-tender, with normal bowel sounds. No distension or tympany. No guarding or rebound. No evidence of tenderness throughout. Skin: Warm, dry with normal turgor. Normal color with no rashes, no lesions, and no evidence of cellulitis. MS/ Extremity: Pulses equal, no cyanosis. Neurovascular intact. Full, normal range of motion. Neuro: Awake and alert, GCS 15, oriented to person, place, time, and situation. Cranial nerves II-XII grossly intact. Motor strength 5/5 in all extremities. Sensory grossly intact. Cerebellar exam normal. Normal gait. Psych: Awake, alert, with orientation to person, place and time. Behavior, mood, and affect are within normal limits. 01:40 Constitutional: The patient appears in no acute distress, alert, awake, uncomfortable. 01:40 Back: pain, that is moderate, of the lumbar area and right low back, ROM is painful, with flexion, normal spinal alignment noted, CVA tenderness, is absent, vertebral tenderness, is not appreciated, muscle spasm, is appreciated in the lumbar area and right low back, Straight leg raises: right lower extremity illicits pain, at 45 degrees. Vital Signs: 00:43 BP 181 / 101; Pulse 83; Resp 18; Temp 98.6; Pulse Ox 100% ; Weight 68.04 kg; Height 5 tw5 ft. 3 in. (160.02 cm); Pain 7/10; 05:36 Pulse 64; Resp 18; Pulse Ox 100% ; Pain 5/10; tw5 00:43 Body Mass Index 26.57 (68.04 kg, 160.02 cm) tw5 MDM: 05:00 Differential diagnosis: chronic back pain, Osteoarthritis sprain. Data reviewed: [facility] signs, nurses notes. Data interpreted: Pulse oximetry: on room air is 100 %. Interpretation: normal. Counseling: I had a detailed discussion with the patient and/or guardian regarding: the historical points, exam findings, and any diagnostic results supporting the discharge/admit diagnosis, the need for outpatient follow up, to return to the emergency department if symptoms worsen or persist or if there are any questions or concerns that arise at home. Response to treatment: the patient's symptoms have markedly improved after treatment. 05:01 Patient medically screened. [facility] Administered Medications: 02:08 Drug: Lidoderm Patch 5 % (700 mg/patch) 1 patches Route: Topical; Site: affected area; tw 04:36 Follow up: Response: No adverse reaction tw 02:08 Drug: Tylenol 1000 mg Route: PO; tw 04:36 Follow up: Response: No adverse reaction 02:08 Drug: Decadron (dexamethasone) 10 mg Route: IM; Site: right ventrogluteal; tw 04:36 Follow up: Response: No adverse reaction 02:08 Drug: Flexeril (cyclobenzaprine) 10 mg Route: PO; tw5 04:36 Follow up: Response: No adverse reaction tw5 04:42 Drug: Ketorolac 60 mg Route: IM; Site: right ventrogluteal; tw5 05:32 Follow up: Response: No adverse reaction tw5 Disposition Summary: 10/08/21 05:01 Discharge Ordered Location: Home [facility] Problem: an acute exacerbation [facility] Symptoms: have improved [facility] Condition: Stable [facility] Diagnosis - Lumbago with sciatica, right side [facility] Followup: [facility] - With: Private Physician - When: 1 - 2 days - Reason: Worsening of condition, Recheck today's complaints, Continuance of care, Re-evaluation by your physician Discharge Instructions: - Discharge Summary Sheet [facility] - Sciatica, [id number]-on-Dkbw [facility] Forms: - Medication Reconciliation Form [facility] - Thank You Letter [facility] - Antibiotic Education [facility] - Prescription Opioid Use [facility] Prescriptions: - ketorolac 10 mg Oral tablet - take 1 tablet by ORAL route every 6 hours As needed not to exceed 40 mg in [facility] 24hrs; 15 tablet; Refills: 0, Product Selection Permitted - lidocaine 5 % Topical adhesive patch,medicated - apply 1 patch by TOPICAL route once daily; 5 patch; Refills: 0, Product [facility] Selection Permitted - Cyclobenzaprine 10 mg Oral Tablet - take 1 tablet by ORAL route every 8 hours As needed; 15 tablet; Refills: 0, [facility] Product Selection Permitted - Medrol (Oziel) 4 mg Oral Tablets, Dose Pack - take 1 tablet by ORAL route as directed - follow package instructions; 1 [facility] packet; Refills: 0, Product Selection Permitted Signatures: Franc Brooks MD MD [facility] Jennifre Li 5
[2021-10-08 05:58] VITALS: BP 181/101; TEMP 98.6; O2SAT 100
== END 2021-10-08 05:37 | disposition home or self-care (01) ==
LOC: ER 00:12
DX: M54.41 Lumbago with sciatica, right side (principal)
CPT/HCPCS: 96372; 99283; J1100; J2001

== ENCOUNTER 2024-07-20 19:44 | Emergency (ER) | payer OTHER, SELFPAY ==
--- OUTSIDE RECORDS SUMMARY | 2024-07-20 19:46 | XMS REPORT | Continuity of Care Document ---
Author Name Unknown Address [address] [place] [address] [facility] Address [address] [place] [address] Care Team Providers Care Roll Setter Name Role Phone BetancourtSelina Flores Primary Care Physician RADIOLOGY Attending Clinician Unavailable CARA STEPHENS Attending Clinician Unavailable SONAL BLANCO Attending Clinician Unavailable JOE LITTLE Attending Clinician UnaANTHONY Buchanan Admitting Clinician Unavailable Allergies, Adverse Reactions, Alerts Allergy Name Allergy Type Status Severity Reaction(s) Onset Date Inactive Date Treating Clinician Comments Source NO KNOWN ALLERGIE S Drug Class Active [facility] Medications Ordered Medication Name Filled Medication Name Start Date Stop Date Current Medication? Ordering Clinician Indication Dosage Frequency Signature (SIG) Comments Components Source As instructed 10-12 00:00: 00 No 4 ibuprofen 800 mg tablet -24 00:00: 00 No 1mg Dose Unknown -19 00:00: 00 No ibuprofen 800 mg tablet 5-16 00:00: 00 No 1mg Vital Signs Vital Name Observation Time Observation Value Comments S stephan BP Systolic 2021-10-12 11:08:00 176 mm[Hg] BP Diastolic 2021-10-12 11:08:00 109 mm[Hg] Weight Measured 2021-10-12 11:08:00 170.00 pounds Height Measured 2021-10-12 11:08:00 63.00 inches Body Temperature 2021-10-12 11:08:00 98.30 degrees Heart Rate 2021-10-12 11:08:00 85.00 /min Respiratory Rate 2021-10-12 11:08:00 18.00 /min BP Systolic 2021-07-25 17:51:00 158 mm[Hg] BP Diastolic 2021-07-25 17:51:00 103 mm[Hg] Weight Measured 2021-07-25 17:51:00 173.60 pounds Height Measured 2021-07-25 17:51:00 63.00 inches Body Temperature 2021-07-25 17:51:00 98.50 degrees Heart Rate 2021-07-25 17:51:00 74.00 /min Respiratory Rate 2021-07-25 17:51:00 BP Systolic 2021-03-01 10:06:00 139 mm[Hg] BP Diastolic 2021-03-01 10:06:00 88 mm[Hg] Weight Measured 2021-03-01 10:06:00 177.00 pounds Height Measured 2021-03-01 10:06:00 63.00 inches Body Temperature 2021-03-01 10:06:00 98.30 degrees Heart Rate 2021-03-01 10:06:00 69.00 /min Respiratory Rate 2021-03-01 10:06:00 18.00 /min Plan of Care Planned Activity Planned Date Details Comments Source Goal Plan of Care Note [code = 26141-2] Goal Plan of Care Note [code = 52259-5] Goal Plan of Care Note [code = 64258-7] Goal Plan of Care Note [code = 58658-7] Goal Plan of Care Note [code = 26040-9] Goal Plan of Care Note [code = 66679-9] Goal Plan of Care Note [code = 03706-9] Goal Plan of Care Note [code = 76294-4] Goal Plan of Care Note [code = 79245-3] Goal Plan of Care Note [code = 73162-7] Goal Plan of Care Note [code = 61838-4] Encounters Start Date/Time End Date/Time Encounter Type Admission Type Attending Clinicians Care Facility Care Department Encounter ID Source 2021-10-12 00:00:00 2021-10-12 00:00:00 Outpatient Visit [facility] [id number] 2021-04-14 00:00:00 2021-04-14 00:00:00 Outpatient R RADIOLOGY [facility] [id number] [facility] 2020-01-06 12:30:00 2020-01-06 12:30:00 Outpatient O CARA STEPHENS [facility] [id number] [facility] 2020-01-05 12:30:00 2020-01-05 12:30:00 Outpatient R CARA STEPHENS [facility] [id number] [facility] 2019-12-29 15:00:00 2019-12-29 15:00:00 Outpatient R SONAL BLANCO [facility] [id number] [facility] 2019-12-29 12:30:00 2019-12-29 12:30:00 Outpatient Dania ANABEL JOE [facility] [id number] [facility] 2019-12-25 00:00:00 2019-12-25 23:59:00 [id number] Results Test Description Test Time Test Comments Results Result Co mments Source VLADIMIR NON-REFLEX TO [id number] 14:38:27* Test Item Value Reference Range Interpretation Comme nts ANTI-NUCLEAR ANTIBODIES (test code = 3506) NEGATIVE NEGATIVE Methodology is I ndirect Immunofluorescent Assay (IFA) with a titering system using [id number] cells (Hep2 cells transfected with SS-A/Ro). A pattern reported as SS-A is considered confirmatory in the appropriate clinical context. [id number] 08:11:01* Test Item Value Reference Range Interpretation Comme [facility] C-PEPTIDE (test code = 4832) 6.5 NG/ML 1.1-4.4 H This Method has been standardized against the WHO International Reference Reagent for C-peptide of human insulin for immunoassay, IRP code 84/510, established 1985, from the National [employer] and [employer] (NIBSC). RHEUMATOID FACTOR, [id number] 06:32:00* Test Item Value Reference Range Interpretation Comme nts RHEUMATOID FACTOR, QUANT (test code = 3502) <10 IU/ML <14 UNLESS OTHERWISE INDICATED, ALL TESTING PERFORMED [facility] [employer] [address] [place] [id number] [employer]ICAL [employer]CONOMICS CONSULTANT: DIMAS THOMAS M.D. CLIA NUMBER [id number] [place]. [id number] CBC W/AUTO DIFF WITH [id number] 06:03:56* Test Item Value Reference Range Interpretation Comme nts WBC (test code = 1001) 7.5 K/UL 3.5-11.0 RBC (test code = 1002) 4.22 M/UL 4.50-6.10 L HEMOGLOBIN (test code = 1003) 13.1 G/DL 13.5-17.0 L HEMATOCRIT (test code = 1004) 38.4 % 40.0-51.0 L MCV (test code = 1005) 91.0 fL 80.0-99.0 MCH (test code = 1006) 31.0 PG 25.0-33.0 MCHC (test code = 1007) 34.1 G/DL 31.0-36.0 RDW (test code = 1038) 13.0 % 11.5-15.0 NEUTROPHILS (test code = 1008) 52.2 % LYMPHOCYTES (test code = 1010) 39.8 % MONOCYTES (test code = 1011) 5.8 % EOSINOPHILS (test code = 1012) 1.7 % BASOPHILS (test code = 1013) 0.4 % IMMATURE GRANULOCYTES (test code = 1036) 0.1 % NUCLEATED RBCS (test code = 1065) 0.0 /100 WBC'S See_Comment [Automated messa ge] The system which generated this result transmitted reference range: 0.0. The reference range was not used to interpret this result as normal/abnormal. PLATELET COUNT (test code = 1015) 387 K/UL 130-400 ABSOLUTE NEUTROPHILS (test code = 1066) 3.92 K/UL 1.50-7.50 ABSOLUTE LYMPHOCYTES (test code = 1067) 3.00 K/UL 1.00-4.00 ABSOLUTE MONOCYTES (test code = 1068) 0.44 K/UL 0.20-1.00 ABSOLUTE EOSINOPHILS (test code = 1040) 0.13 K/UL 0.00-0.50 ABSOLUTE BASOPHILS (test code = 1069) 0.03 K/UL 0.00-0.20 ABS IMMATURE GRANULOCYTES (test code = 1020) 0.01 K/UL 0.00-0.10 ABS NUCLEATED RBCS (test code = 97433) 0.00 K/UL 0.00-0.11 COMPREHENSIVE METABOLIC [id number] 05:22:37* Test Item Value Reference Range Interpretation Comme nts GLUCOSE (test code = 2216) 116 MG/DL 70-99 H BUN (test code = 2207) 12 MG/DL 6-20 CREATININE (test code = 2213) 0.87 MG/DL 0.80-1.40 eGFR (2020 CKD-EPI) (test code = 71159) 110 ML/MIN/1.73 >60 CALC BUN/CREAT (test code = 2234) 14 RATIO 6-28 SODIUM (test code = 2230) 139 MEQ/L 133-146 POTASSIUM (test code = 2227) 4.3 MEQ/L 3.5-5.4 CHLORIDE (test code = 2214) 104 MEQ/L 95-107 CARBON DIOXIDE (test code = 2205) 25 MEQ/L 19-31 CALCIUM (test code = 2208) 9.0 MG/DL 8.5-10.5 PROTEIN, TOTAL (test code = 2228) 7.1 G/DL 6.1-8.3 ALBUMIN (test code = 2200) 4.6 G/DL 3.5-5.2 CALC GLOBULIN (test code = 2240) 2.5 G/DL 1.9-3.7 CALC A/G RATIO (test code = 2233) 1.8 RATIO 1.0-2.6 BILIRUBIN, TOTAL (test code = 2206) <0.2 MG/DL See_Comment [Automated me ssage] The system which generated this result transmitted reference range: <=1.2. The reference range was not used to interpret this result as normal/abnormal. ALKALINE PHOSPHATASE (test code = 2203) 94 U/L 40-119 AST (test code = 8) 43 U/L 9-50 ALT (test code = 2219) 75 U/L 5-50 H CBC W/AUTO [id number] 00:00:00* Test Item Value Reference Range Interpretation Comme nts WBC (test code = 1001) 7.5 K/UL RBC (test code = 1002) 4.22 M/UL HEMOGLOBIN (test code = 1003) 13.1 G/DL HEMATOCRIT (test code = 1004) 38.4 % MCV (test code = 1005) 91.0 fL MCH (test code = 1006) 31.0 PG MCHC (test code = 1007) 34.1 G/DL RDW (test code = 1038) 13.0 % NEUTROPHILS (test code = 1008) 52.2 % LYMPHOCYTES (test code = 1010) 39.8 % MONOCYTES (test code = 1011) 5.8 % EOSINOPHILS (test code = 1012) 1.7 % BASOPHILS (test code = 1013) 0.4 % IMMATURE GRANULOCYTES (test code = 1036) 0.1 % NUCLEATED RBCS (test code = 1065) 0.0 /100WBC'S PLATELET COUNT (test code = 1015) 387 K/UL ABSOLUTE NEUTROPHILS (test c ode = 1066) 3.92 K/UL ABSOLUTE LYMPHOCYTES (test c ode = 1067) 3.00 K/UL ABSOLUTE MONOCYTES (test cod e = 1068) 0.44 K/UL ABSOLUTE EOSINOPHILS (test c ode = 1040) 0.13 K/UL ABSOLUTE BASOPHILS (test cod e = 1069) 0.03 K/UL ABS IMMATURE GRANULOCYTES (t est code = 1020) 0.01 K/UL ABS NUCLEATED RBCS (test cod e = 16537) 0.00 K/UL COMPREHENSIVE METABOLIC [id number] 00:00:00* Test Item Value Reference Range Interpretation Comme nts GLUCOSE (test code = 2217) 116 MG/DL BUN (test code = 2208) 12 MG/DL CREATININE (test code = 2214) 0.87 MG/DL eGFR (2020 CKD-EPI) (test code = 15586) 110 ML/MIN/1.73 CALC BUN/CREAT (test code = 2235) 14 RATIO SODIUM (test code = 2231) 139 MEQ/L POTASSIUM (test code = 2228) 4.3 MEQ/L CHLORIDE (test code = 2215) 104 MEQ/L CARBON DIOXIDE (test code = 2206) 25 MEQ/L CALCIUM (test code = 2209) 9.0 MG/DL PROTEIN, TOTAL (test code = 2229) 7.1 G/DL ALBUMIN (test code = 2201) 4.6 G/DL CALC GLOBULIN (test code = 2240) 2.5 G/DL CALC A/G RATIO (test code = 2234) 1.8 RATIO BILIRUBIN, TOTAL (test code = 2207) <0.2 MG/DL ALKALINE PHOSPHATASE (test code = 2204) 94 U/L AST (test code = 2218) 43 U/L ALT (test code = 2219) 75 U/L [id number] 00:00:00* Test Item Value Reference Range Interpretation Comme nts C-PEPTIDE (test code = 4832) 6.5 NG/ML VLADIMIR NON-REFLEX TO [id number] 00:00:00* Test Item Value Reference Range Interpretation Comme nts ANTI-NUCLEAR ANTIBODIES (don t code = 3501) NEGATIVE RHEUMATOID FACTOR, [id number] 00:00:00* Test Item Value Reference Range Interpretation Comme nts RHEUMATOID FACTOR, QUANT (te st code = 3505) <10 IU/ML
[2024-07-20] MEDS ORDERED: PROMETHAZINE 25 MG TABLET ONE (20:44)
[2024-07-20] MEDS ORDERED: MORPHINE 2 MG/ML SYR ONE (20:44)
[2024-07-20] MEDS ORDERED: KETOROLAC 30 MG/ML INJ ONE (20:44)
[2024-07-20] MEDS ORDERED: methocarbamoL 750 MG TAB ONE (20:44)
[2024-07-20] MEDS ORDERED: MORPHINE 4 MG/ML SYR ONE (20:45)
--- NOTE | 2024-07-20 22:14 | ER ---
Nurse's Notes [facility] Name: Mario Alberto Spear Age: 44 yrs Sex: Male : 1980 Arrival Date: 07/20/2024 Time: 19:44 Bed 6 Private MD: Diagnosis: Acute Right Sciatica ;Lumbago with sciatica, right side Presentation: 07/20 20:00 Chief complaint: Patient states: RT LOWER BACK PAIN X4 DAYS AGO, BEGAN HAVING PAIN TO dd2 THE RT CALF AND RADIATING TO THE RT HIP. Coronavirus screen: At this time, the client does not indicate any symptoms associated with coronavirus-19. Ebola Screen: No symptoms or risks identified at this time. Initial Sepsis Screen: Does the patient meet any 2 criteria? No. Patient's initial sepsis screen is negative. Does the patient have a suspected source of infection? No. Patient's initial sepsis screen is negative. Risk Assessment: Do you want to hurt yourself or someone else? Patient reports no desire to harm self or others. Onset of symptoms was July 16, 2024. 20:00 Method Of Arrival: Ambulatory dd2 20:00 Acuity: FAISAL 3 dd2 Triage Assessment: 20:03 General: Appears in no apparent distress. uncomfortable, Behavior is calm, cooperative, dd2 appropriate for age. Pain: Complains of pain in right low back and right calf Pain radiates to right gluteal fold and right hamstring Pain currently is 10 out of 10 on a pain scale. Musculoskeletal: Circulation, motion, and sensation intact. Range of motion: intact in all extremities, Reports pain in right low back, right gluteal fold, right hamstring and right calf. Historical: - Allergies: 20:03 No Known Allergies; dd2 - PMHx: 20:03 back injury to L5 \T\ S1; dd2 - PSHx: 20:03 None; dd2 - Immunization history:: Adult Immunizations up to date. - Infectious Disease History:: Denies. - Social history:: Smoking status: Reported history of juuling and/or vaping. - Family history:: not pertinent. Screenin:52 [facility] ED Fall Risk Assessment (Adult) History of falling in the last 3 months, bm8 including since admission No falls in past 3 months (0 pts) Confusion or Disorientation No (0 pts) Intoxicated or Sedated No (0 pts) Impaired Gait No (0 pts) Mobility Assist Device Used No (0 pt) Altered Elimination No (0 pt) Score/Fall Risk Level 0 - 2 = Low Risk Oriented to surroundings, Maintained a safe environment, Educated pt \T\ family on fall prevention, incl call for assistance when getting out of bed, Assessed \T\ reinforced patient's understanding of fall precautions, Hourly rounding (assess needs \T\ fall precautionary measures) done, Used ambulatory aids as needed (educated on \T\ assisted with), Used gait belt as appropriate. Abuse screen: Denies threats or abuse. Nutritional screening: No deficits noted. Tuberculosis screening: No symptoms or risk factors identified. Assessment: 20:52 General: Appears in no apparent distress. uncomfortable, Behavior is calm, cooperative, bm8 appropriate for age. Pain: Complains of pain in right hamstring and right gluteal fold and right leg and right calf and back and right low back Pain currently is 8 out of 10 on a pain scale. Neuro: No deficits noted. Level of Consciousness is awake, alert, obeys commands, Oriented to person, place, time, situation, Appropriate for age. Cardiovascular: Denies chest pain, Capillary refill < 3 seconds in bilateral fingers Patient's skin is warm and dry. Respiratory: Airway is patent Respiratory effort is even, unlabored, Respiratory pattern is regular, symmetrical. GI: No signs and/or symptoms were reported involving the gastrointestinal system. : No signs and/or symptoms were reported regarding the genitourinary system. EENT: No signs and/or symptoms were reported regarding the EENT system. Derm: No signs and/or symptoms reported regarding the dermatologic system. Musculoskeletal: Circulation, motion, and sensation intact. Capillary refill < 3 seconds, in bilateral fingers. Range of motion: intact in all extremities, Reports pain in right hamstring and right gluteal fold and right leg and right calf and back and right low back Pain is 8 out of 10 on a pain scale. 21:40 Reassessment: Patient appears in no apparent distress at this time. Patient and/or bm8 family updated on plan of care and expected duration. Pain level reassessed. Patient is alert, oriented x 3, equal unlabored respirations, skin warm/dry/pink. Patient states feeling better. Patient states symptoms have improved. 21:40 Pain: Pain currently is 6 out of 10 on a pain scale. bm8 22:29 Reassessment: Patient appears in no apparent distress at this time. Patient and/or bm8 family updated on plan of care and expected duration. Pain level reassessed. Patient is alert, oriented x 3, equal unlabored respirations, skin warm/dry/pink. Patient denies pain at this time. Patient states feeling better. Patient states symptoms have improved. Vital Signs: 20:00 BP 151 / 104; Pulse 72; Resp 16; Temp 98.2; Pulse Ox 100% on R/A; Weight 89.81 kg; dd2 Height 5 ft. 3 in. ; Pain 10/10; 21:40 BP 156 / 104; Pulse 62; Resp 18; Temp 98.2; Pulse Ox 96% ; Pain 6/10; bm8 22:29 BP 150 / ???; Pulse 62; Resp 18; Temp 98.2; Pulse Ox 100% ; Pain 0/10; bm8 20:00 Body Mass Index 35.07 (89.81 kg, 160.02 cm) dd2 20:00 Pain Scale: Adult dd2 21:40 Pain Scale: Adult bm8 22:29 Pain Scale: Adult bm8 Yeso Coma Score: 20:52 Eye Response: spontaneous(4). Motor Response: obeys commands(6). Verbal Response: bm8 oriented(5). Total: 15. 21:40 Eye Response: spontaneous(4). Motor Response: obeys commands(6). Verbal Response: bm8 oriented(5). Total: 15. 22:29 Eye Response: spontaneous(4). Motor Response: obeys commands(6). Verbal Response: bm8 oriented(5). Total: 15. 0512 02:06 Eye Response: spontaneous(4). Motor Response: obeys commands(6). Verbal Response: sp4 oriented(5). Total: 15. ED Course: 07/20 19:45 Patient arrived in ED. gm2 20:03 Triage completed. dd2 20:03 Arm band placed on right wrist. dd2 20:11 Otis Aguirre MD is Attending Physician. sp4 20:41 Irwin Mcclure RN is Primary Nurse. bm8 20:52 Patient has correct armband on for positive identification. Client placed on continuous bm8 cardiac and pulse oximetry monitoring. NIBP monitoring applied. Pulse ox on. NIBP on. Door closed. Noise minimized. Warm blanket given. Pillow given. Verbal reassurance given. Head of bed lowered. 20:52 No provider procedures requiring assistance completed. Patient did not have IV access bm8 during this emergency room visit. 22:29 Provided Education on: post er care. bm8 Administered Medications: 20:51 Drug: Ketorolac IM 60 mg IM once Route: IM; Site: right deltoid; bm8 22:30 Follow up: Response: No adverse reaction bm8 20:51 Drug: Methocarbamol PO 1500 mg PO once Route: PO; bm8 22:30 Follow up: Response: No adverse reaction bm8 20:51 Drug: Promethazine PO 25 mg PO once Route: PO; bm8 22:29 Follow up: Response: No adverse reaction bm8 20:52 Drug: morphine IM 6 mg IM once Route: IM; Site: right ventrogluteal; bm8 22:30 Follow up: Response: No adverse reaction bm8 Medication: 20:52 VIS not applicable for this client. bm8 Outcome: 22:14 Discharge ordered by . blossom 22:29 Discharged to home ambulatory, with family, bm8 22:29 Condition: stable 22:29 Discharge instructions given to patient, family, Instructed on discharge instructions, follow up and referral plans. no drinking with medication, no driving heavy equipment, medication usage, safety practices, Demonstrated understanding of instructions, follow-up care, medications, Prescriptions given X 4, 22:31 Patient left the ED. bm8 Signatures: Otis Aguirre MD MD sp4 Lola Prado 2 Irwin Mcclure RN RN bm8 LULU COHN RN RN dd2 Corrections: (The following items were deleted from the chart) 21:41 21:40 Reassessment: Patient appears in no apparent distress at this time. Patient bm8 and/or family updated on plan of care and expected duration. Pain level reassessed. Patient is alert, oriented x 3, equal unlabored respirations, skin warm/dry/pink. Patient denies pain at this time. Patient states feeling better. Patient states symptoms have improved. bm8
--- NOTE | 2024-07-20 22:14 | EDPHYS ---
Physician Documentation [facility] Name: Mario Alberto Spear Age: 44 yrs Sex: Male : 1980 Arrival Date: 07/20/2024 Time: 19:44 Bed 6 Private MD: ED Physician Otis Aguirre HPI: 07/20 20:11 This 44 yrs old Male presents to ER via Ambulatory with complaints of Back sp4 Pain, Leg Pain. 07/21 02:06 44-year-old male presents with acute pain right buttock radiating down the right lower sp4 leg. . Historical: - Allergies: 07/20 20:03 No Known Allergies; dd2 - PMHx: 20:03 back injury to L5 \T\ S1; dd2 - PSHx: 20:03 None; dd2 - Immunization history:: Adult Immunizations up to date. - Infectious Disease History:: Denies. - Social history:: Smoking status: Reported history of juuling and/or vaping. - Family history:: not pertinent. ROS: 07/21 02:06 Constitutional: Negative for fever, chills, and weight loss, positive for sp4 right leg pain and right lower back pain All other systems are negative, Exam: 02:06 Constitutional: This is a well developed, well nourished patient who is awake, alert, sp4 and in no acute distress. Head/Face: Normocephalic, atraumatic. Eyes: Pupils equal round and reactive to light, extra-ocular motions intact. Lids and lashes normal. Conjunctiva and sclera are not injected. Cornea within normal limits. Periorbital areas with no swelling, redness, or edema. ENT: Nares patent. No nasal discharge, no septal abnormalities noted. Tympanic membranes are normal and external auditory canals are clear. Oropharynx with no redness, swelling, or masses, exudates, or evidence of obstruction, uvula midline. Mucous membranes moist. Neck: Trachea midline, no thyromegaly or masses palpated, and no cervical lymphadenopathy. Supple, full range of motion without nuchal rigidity, or vertebral point tenderness. Chest/axilla: Normal chest wall appearance and motion. Nontender with no deformity. No lesions are appreciated. Cardiovascular: Regular rate and rhythm with a normal S1 and S2. No gallops, murmurs, or rubs. Normal PMI, no JVD. No pulse deficits. Respiratory: Lungs have equal breath sounds bilaterally, clear to auscultation and percussion. No rales, rhonchi or wheezes noted. No increased work of breathing, no retractions or nasal flaring. Abdomen/GI: Soft, with normal bowel sounds. No distension or tympany. No guarding or rebound. No evidence of tenderness throughout. Back: No spinal tenderness. No costovertebral tenderness. Skin: Warm, dry with normal turgor. Normal color with no rashes, no lesions, and no evidence of cellulitis. MS/ Extremity: Pulses equal, no cyanosis. Neurovascular intact. Full, normal range of motion. Neuro: Awake and alert, GCS 15, oriented to person, place, time, and situation. Cranial nerves II-XII grossly intact. Motor strength 5/5 in all extremities. Sensory grossly intact. Psych: Awake, alert, with orientation to person, place and time. Behavior, mood, and affect are within normal limits Vital Signs: 07/20 20:00 BP 151 / 104; Pulse 72; Resp 16; Temp 98.2; Pulse Ox 100% on R/A; Weight 89.81 kg; dd2 Height 5 ft. 3 in. ; Pain 10/10; 21:40 BP 156 / 104; Pulse 62; Resp 18; Temp 98.2; Pulse Ox 96% ; Pain 6/10; bm8 22:29 BP 150 / ???; Pulse 62; Resp 18; Temp 98.2; Pulse Ox 100% ; Pain 0/10; bm8 20:00 Body Mass Index 35.07 (89.81 kg, 160.02 cm) dd2 20:00 Pain Scale: Adult dd2 21:40 Pain Scale: Adult bm8 22:29 Pain Scale: Adult bm8 Von Coma Score: 20:52 Eye Response: spontaneous(4). Motor Response: obeys commands(6). Verbal Response: bm8 oriented(5). Total: 15. 21:40 Eye Response: spontaneous(4). Motor Response: obeys commands(6). Verbal Response: bm8 oriented(5). Total: 15. 22:29 Eye Response: spontaneous(4). Motor Response: obeys commands(6). Verbal Response: bm8 oriented(5). Total: 15. 07/21 02:06 Eye Response: spontaneous(4). Motor Response: obeys commands(6). Verbal Response: sp4 oriented(5). Total: 15. MDM: 07/20 20:30 Medical Screening Exam initiated sp4 07/21 02:11 Differential diagnosis: chronic back pain, Fatigue Fracture Joint Injury ruptured disc, sp4 sprain. Data reviewed: vital signs, nurses notes, old medical records. ED course: Patient has improved, patient able to ambulate without assistance, no sign of lower extremity paralysis. Patient stable for discharge. Administered Medications: 07/20 20:51 Drug: Ketorolac IM 60 mg IM once Route: IM; Site: right deltoid; bm8 22:30 Follow up: Response: No adverse reaction bm8 20:51 Drug: Methocarbamol PO 1500 mg PO once Route: PO; bm8 22:30 Follow up: Response: No adverse reaction bm8 20:51 Drug: Promethazine PO 25 mg PO once Route: PO; bm8 22:29 Follow up: Response: No adverse reaction bm8 20:52 Drug: morphine IM 6 mg IM once Route: IM; Site: right ventrogluteal; bm8 22:30 Follow up: Response: No adverse reaction bm8 Disposition Summary: 07/20/24 22:14 Discharge Ordered Notes: Location: Home sp4 Problem: new sp4 Symptoms: have improved sp4 Condition: Stable sp4 Diagnosis - Acute Right Sciatica sp4 - Lumbago with sciatica, right side sp4 Followup: sp4 - With: Private Physician - When: 7 - 10 days - Reason: Recheck today's complaints Discharge Instructions: - Discharge Summary Sheet sp4 - Sciatica, [id number] sp4 Forms: - Work release form sp4 - Patient Portal Instructions sp4 Prescriptions: - meloxicam 7.5 mg Oral tablet - take 1 tablet ORAL route every 12 hours PRN pain; 50 tablet; Refills: 0, sp4 Product Selection Permitted - Tramadol 50 mg Oral tablet - take 1 tablet ORAL route every 8 hours as needed; 30 tablet; Refills: 0, sp4 Product Selection Permitted - Prednisone 20 mg Oral Tablet - take 2 tablets ORAL route once daily for 5 days; 10 tablet; Refills: 0, Product sp4 Selection Permitted - methocarbamol 750 mg Oral tablet - take 2 tablets ORAL route every 8 hours for 3 days PRN pain; 60 tablet; sp4 Refills: 0, Product Selection Permitted Signatures: Otis Aguirre MD MD sp4 Irwin Mcclure RN RN bm8 LULU COHN RN RN dd2
[2024-07-20 22:38] VITALS: TEMP 98.2
[2024-07-20 22:40] VITALS: BP 156/104
[2024-07-20 22:42] VITALS: O2SAT 100
== END 2024-07-20 22:31 | disposition home or self-care (01) ==
LOC: ER 19:44
DX: M54.41 Lumbago with sciatica, right side (principal)
CPT/HCPCS: 96372; 99284; J2270; Q0169